=== PATIENT | female | born 1970 | race Caucasian/White ===

== ENCOUNTER → 2021-01-26 01:44 | Outpatient (CLI) | payer OTHER, SELFPAY ==
[2021-01-26 20:12] LABS: SARS-CoV-2 RNA PCR Negative
== END ==
PROVIDERS: PCP Physician Assistant; Visit Provider Surgery Plastic and Reconstructive Surgery
DX: Z01.812 Encounter for preprocedural laboratory examination (principal); Z20.822 Contact with and (suspected) exposure to COVID-19
CPT/HCPCS: C9803; U0003; U0005

== ENCOUNTER 2021-01-26 09:13 | Outpatient (CLI) | payer OTHER, SELFPAY ==
--- NOTE | 2021-01-26 09:00 | ECG_ITS ---
Measurements Intervals [place] Rate: 79 P: 57 MD: 130 QRS: 18 QRSD: 87 T: 21 QT: 342 QTc: 392 Interpretive Statements SINUS RHYTHM WITH SINUS ARRHYTHMIA BASELINE ARTIFACT- II, III, AVR, AVL, AVF NORMAL ECG Electronically Signed On 01-26-2021 9:47:47 CDT by Dereck Martin D.O.
[2021-01-26 09:42] LABS: Albumin Level 4.6 g/dL (3.5-5.1)
[2021-01-26 09:46] LABS: Anion Gap 9 mmol/L (8-16); Blood Urea Nitrogen 12 mg/dL (7-17); Calcium 8.8 mg/dL (8.4-10.2); Carbon Dioxide 29 mmol/L (22-30); Chloride 101 mmol/L (98-107); Estimated Glomerular Filt Rate > 60; Glucose 171 mg/dL (65-105); Potassium 3.5 mmol/L (3.4-5.0); Sodium 139 mmol/L (137-145)
[2021-01-26 09:52] LABS: Prealbumin 33.8 mg/dL (17.6-36.0)
[2021-01-26 10:12] LABS: Iron 27 ug/dL (37-170)
[2021-01-29 05:01] LABS: Vitamin B1 <6 nmol/L (8-30)
== END 2021-01-26 09:14 | disposition home or self-care (01) ==
LOC: ANHSURGERY 09:15
PROVIDERS: Anesthesiology; PCP Physician Assistant; Visit Provider Surgery Plastic and Reconstructive Surgery
DX: Z01.818 Encounter for other preprocedural examination (principal); I10 Essential (primary) hypertension; L57.4 Cutis laxa senilis
CPT/HCPCS: 36415; 80048; 82040; 83540; 84134; 84425; 93005

== ENCOUNTER 2021-01-29 02:29 | Day surgery (SDC) | payer OTHER, SELFPAY ==
[2021-01-20 09:20] VITALS: BMI 24.8
[2021-01-29] VITALS (22 sets, daily range): BP systolic 119–161; BP diastolic 78–105; PULSE 91–110; RESP 12–20; TEMP 36.7–37.2; O2SAT 94–100
[2021-01-29] MEDS: LACTATED RINGERS 1,000 ML 30 ML IV CONT ×2 (06:20→10:14)
[2021-01-29 06:30] LABS: Urine Cotinine NEGATIVE
--- NOTE | 2021-01-29 06:48 | WPDHPUPDATE1 ---
History and Physical Update Update Date/Time: 01/29/21 06:48 History and Physical has been reviewed, including an updated exam of the patient. There are NO changes in the patient's condition. Risks, benefits, and alternatives have been discussed and questions answered. Patient agrees to proceed with procedure.
--- NOTE | 2021-01-29 07:00 | PM.PROC ---
Procedure Note - Detailed Date of procedure: 01/29/21 Pre-op diagnosis: Skin Laxity Post-op diagnosis: same Procedure performed: Progressive tension abdominoplasty Description of procedure: She is here today for abdominoplasty. Previously and again today the risks, benefits, alternatives were discussed in extensive detail. I wanted her to be very realistic about the risks involved as well as expectations. We discussed aftercare and what to monitor for. I was very upfront about the risks of wound breakdown leading to loss of skin, open wounds, and need for additional procedures with permanent abdominal deformity. We discussed DVT/PE risks and management. Made sure answered all of her questions to her satisfaction today and consent was obtained. She was marked in the preoperative holding area with their verification. The patient was taken to the operating room placed supine on the operating table. Anesthesia was provided by anesthesiology. A simpson catheter was started. She was prepped and draped in a standard sterile fashion. A surgical time-out was taken. I placed the patient in a flexed position to verify the upper and lower markings would reach. I then placed her supine. A thorough abdominal examination was completed. Stab incisions were made and used tumescent solution. A 10 blade was used to make the upper incision. I continued dissection down to the level of fascia. Elevated just what was necessary for repair of the diastasis and discontinuous undermining otherwise. I then again flexed the bed to verify the upper skin flap would reach the lower markings without tension. Once verified I placed her supine once again and a 10 blade used to make the lower incision. I elevated up to level the umbilicus and left the umbilicus intact on a well-vascularized stalk. The intervening tissue was removed. A 2 mm blunt cannula and Exparel which was mixed 20 cc in 100 cc for a total volume of 120 cc I injected deep to the fascia bilaterally as well as along the incision lines. I plicated the diastasis recti using 0 PDO stratafix barbed suture. This was in 2 separate layers using 2 separate sutures as well. I repaired around the umbilicus leaving plenty of room for well-vascularized stalk of the umbilicus with 2-0 PDS. The patient was flexed and starting from superior to inferior began plication using 2-0 Vicryl to obliterate all space in a standard progressive tension fashion. At the umbilicus I marked out the location of the skin and inset this with 3-0 Monocryl and 4-0 nylon. I continued the remainder of the plication using 2-0 Vicryl until I reached my lower planned scar line. I trimmed any excess skin of the upper flap making sure this was a tension-free closure. I then approximated using a 3 point suture with 2-0 Vicryl followed by 3-0 stratafix ,running subcuticular 4-0 Monocryl, and tissue glue. Fluffs and an abdominal binder were placed. The patient was transferred to the bed in a flexed position. Awoken and taken to the PACU without difficulty. All instrument and sponge counts were correct at the end of the case. Anesthesia: GLMA Surgeon: Kev Glez MD Estimated blood loss (mL): 30 Drains: No Packing: No Pathology: none sent Complications: No immediate complications Condition: stable Disposition: PACU
--- NOTE | 2021-01-29 07:06 | WPDANESEPPF ---
Anes - Initial Pre Proc Eval Procedure: Operation Date: 01/29/21 07:30 Proposed Procedures p Abdominoplasty - Kev Glez MD Date/Time: 01/29/21 07:06 Surgeon: Kev Glez MD Pre Op Diagnosis: Skin Laxity Patient Data Age: 51 Gender: F Height: 5 ft 7 in Weight: 71.7 kg Last Vital Signs Temp 98.4 F 01/29/21 06:40 Pulse 93 01/29/21 06:40 Resp 18 01/29/21 06:40 BP 126/89 01/29/21 06:40 Pulse Ox 97 01/29/21 06:40 Allergies Allergy/AdvReac Type Severity Reaction Status Date / Time Penicillins Allergy Intermediate Hives Verified 01/29/21 07:00 Home Medications Medication Instructions Recorded Confirmed Type bupropion HCl 300 mg 24 hr tablet, 300 mg PO QAM 11/13/19 01/29/21 History extended release calcium carbonate 600 mg(1,500 1 tablet PO DAILY 11/13/19 01/29/21 History mg)-vitamin D3 800 unit chewable tablet hydrochlorothiazide 50 mg tablet 50 mg PO DAILY 11/13/19 01/29/21 History multivitamin 1 tablet PO DAILY 11/13/19 01/29/21 History omeprazole 40 mg capsule,delayed 40 mg PO DAILY 11/13/19 01/29/21 History release vitamin B complex 1 tablet PO DAILY 11/13/19 01/29/21 History estradiol 0.025 mg/24 hr 1 patch TRANSDERMAL 2XW 12/19/20 01/29/21 History semiweekly transdermal patch lisdexamfetamine 60 mg capsule 60 mg PO DAILY 12/19/20 01/29/21 History docusate sodium 100 mg capsule 100 mg PO DAILY #14 cap 01/07/21 01/29/21 Rx ondansetron HCl 4 mg tablet 4 mg PO Q8H #28 tablet 01/07/21 01/29/21 Rx carisoprodol 350 mg tablet 350 mg PO TID PRN #21 tablet 01/12/21 01/29/21 Rx oxycodone-acetaminophen 5 mg-325 1 tablet PO Q6H PRN #15 tablet 01/12/21 01/29/21 Rx mg tablet Laboratory Tests 01/29/21 06:14 Cotinine Negative Patient hx anesthesia problems: none Family hx anesthesia problems: none PMFSH Past Medical History Medical History ADHD Anemia Anxiety Depression Hypertension Psoriatic arthritis Vaginal delivery Surgical History Surgical History History of breast augmentation History of bunionectomy History of endometrial ablation History of gastric bypass S/P lumbar microdiscectomy Family History Family History Father Diabetes mellitus Family history of hypercholesterolemia Hypertension Mother Family history of hypercholesterolemia Family history of pancreatic disease Hypertension Social History Social History Smoking status: Never smoker Alcohol intake: current Substance use: never Substance use type: marijuana Living arrangements: with family Gender identity (if verbalized by the patient): Female Spiritual care concerns: No Anes - Eval Final PreProcedure Day of Procedure 01/29/21 07:06 Patient weight: overweight Heart: regular rate and rhythm Lungs: clear to auscultation Airway: Mallampati scale class II Neurological: alert and oriented Last oral intake: >/= 8 hours ASA classification: II Emergent: no Anesthetic plan: proceed Anesthesia type and monitoring: general ETT and standard monitoring Informed Consent: The patient's anesthetic plan and its attendant risks and benefits were discussed with the patient/family/POA. Questions were solicited and answers provided to the satisfaction of the patient/family/POA.
[2021-01-29] MEDS: CLINDAMYCIN 900 MG/D5W 50 ML 900 MG/50 ML PIGGYBACK 50 MG IVPB (07:28)
[2021-01-29] MEDS: fentaNYL CITRATE INJ (*CRX) 100 MCG/2 ML VIAL 25 MCG IV PUSH ×4 (10:33→11:02)
--- NOTE | 2021-01-29 10:50 | SUR.PHASEI ---
1050- Call to Dr. Jain patient's BP elevated 153/105 with HR in the 90's. Patient does have history of hypertension and sleeping comfortably in stretcher at this time with minimal pain. Per Dr. Jain no intervention needed at this time. Continue to monitor patient's BP and pain level. He will see patient in PACU to assess her status.
[2021-01-29] MEDS: HYDROmorphone HCL INJ (*CRX) 1 MG/ML SYR 0.5 MG IV PUSH ×6 (11:16→12:22)
--- NOTE | 2021-01-29 11:16 | SUR.PHASEI ---
1116- Dr. Jain rounding on patient at this time. No additional orders. BP 149/105 with HR in 90's. Will continue to monitor.
--- NOTE | 2021-01-29 11:45 | SUR.PHASEI ---
1145- Call to OB Second unit to give nurse report. Floor RN unavailable at this time. Awaiting call back from floor RN.
--- NOTE | 2021-01-29 11:58 | SUR.PHASEI ---
1158- Call to Dr. Jain patient's BP remains elevated 158/102 with HR in 90's to low 100's after giving 100MCG fentanyl IVP and 2.5MG dilaudid IVP. Orders obtained to give 5MG hydralazine IVP and repeat 5MG hydralazine IVP for a total of 10MG hydralazine IVP. Will continue to monitor.
[2021-01-29] MEDS: hydrALAZINE HCL 20 MG/ML VIAL 5 MG IV PUSH ×2 (12:05→12:15)
--- NOTE | 2021-01-29 12:12 | SUR.PHASEI ---
1200- Report given to OB Second RN at this time. Updated her patient will be receiving 5MG hydralazine IVP and repeat 5MG IVP hydralazine to improve BP.
[2021-01-29] MEDS: carisoprodoL (*CRX) 350 MG TABLET PO ×2 (13:23→19:31)
[2021-01-29] MEDS: LACTATED RINGERS 1,000 ML 125 ML IV CONT ×2 (13:23→19:36)
[2021-01-29] MEDS: MORPHINE SULFATE (*CRX) 2 MG/ML INJ IV PUSH ×2 (13:27→19:43)
[2021-01-29] MEDS: oxyCODONE/ACETAMINOPHEN (*CRX) 5-325 MG TABLET PO ×2 (14:59→20:32)
[2021-01-29] MEDS: ENOXAPARIN 40 MG/0.4 ML SYRINGE SUB-Q (16:40)
[2021-01-29] MEDS: PANTOPRAZOLE 40 MG TABLET PO (16:40)
[2021-01-29] MEDS: DOCUSATE SODIUM 100 MG CAPSULE PO (19:31)
[2021-01-30] MEDS: carisoprodoL (*CRX) 350 MG TABLET PO ×2 (01:00→06:10)
[2021-01-30] MEDS: oxyCODONE/ACETAMINOPHEN (*CRX) 5-325 MG TABLET PO ×2 (02:43→07:57)
[2021-01-30 04:00] VITALS: BP 142/88; PULSE 96; RESP 18; TEMP 36.9; O2SAT 98
--- NOTE | 2021-01-30 06:39 | WPDPN ---
Progress Note: A&P Assessment and Plan (1) Skin laxity: Code(s): L57.4 - Cutis laxa senilis Status: Acute Assessment and Plan: She is doing well after progressive tension abdominoplasty. Will discharge home a once she voids. Today we had a lengthy discussion about her care. What monitor for. We outlined what to do in the event of an emergency including down 911/proceed to the emergency room. I explained for all other questions we are available at any time with any questions or concerns. This was a lengthy open-ended conversation making sure she was well informed of the care. We will monitor this morning and make sure she voids prior to discharge. Will check bladder scan if she does not avoid after breakfast which she has ordering now. (2) History of breast augmentation: Code(s): Z98.82 - Breast implant status Status: Acute Review of Systems Review of Systems: All systems reviewed & are unremarkable except as noted in HPI and below Exam Narrative: Exam Narrative: Abdomen is healing well. There is no signs of infection. No hematoma. No seroma. Good color and capillary refill. No calf tenderness. Negative Homans. Const: General: comfortable, no acute distress, alert and awake; No acute distress Orientation/consciousness: oriented to person HENMT: Head: normal to inspection Ears: external ears normal General nose exam: Normal external nose present Face and sinus: normal facial exam Eyes: General: appearance normal, both eyes and all related structures Periorbital: periorbital findings normal Eyelids: eyelids normal Conjunctivae: conjunctivae normal Neck: Neck: normal visual inspection Chest: Chest palpation & inspection: normal inspection of the chest Resp: Effort & Inspection: normal respiratory effort and able to speak in complete sentences GI: Inspection: normal to inspection Neuro: General: oriented to person Psych: Appearance: grossly normal Mental Status: mental status grossly normal Objective Data Vital Signs Vital Signs: Vital Signs - 24 hr 01/29/21 06:40 01/29/21 10:14 01/29/21 10:25 Temperature 36.9 C 37.1 C Pulse Rate 93 92 91 Respiratory Rate 18 12 12 Blood Pressure 126/89 119/87 137/90 Pulse Oximetry 97 98 99 01/29/21 10:35 01/29/21 10:50 01/29/21 10:55 Temperature Pulse Rate 92 93 95 Respiratory Rate 12 12 12 Blood Pressure 141/93 H 153/105 H 155/104 H Pulse Oximetry 98 94 94 01/29/21 11:05 01/29/21 11:20 01/29/21 11:35 Temperature Pulse Rate 95 97 95 Respiratory Rate 12 16 16 Blood Pressure 158/101 H 149/105 H 148/99 H Pulse Oximetry 94 96 96 01/29/21 11:45 01/29/21 11:55 01/29/21 12:10 Temperature Pulse Rate 96 98 104 H Respiratory Rate 16 16 18 Blood Pressure 161/98 H 158/102 H 150/98 H Pulse Oximetry 96 96 97 01/29/21 12:20 01/29/21 12:25 01/29/21 12:45 Temperature Pulse Rate 104 H 104 H Respiratory Rate 16 18 Blood Pressure 152/90 H 150/89 H Pulse Oximetry 97 96 97 01/29/21 12:50 01/29/21 14:45 01/29/21 15:00 Temperature 37.2 C 36.8 C Pulse Rate 110 H 105 H 105 H Respiratory Rate 18 18 18 Blood Pressure 146/81 H 148/82 H Pulse Oximetry 97 97 97 01/29/21 18:20 01/29/21 19:00 01/29/21 20:25 Temperature 36.7 C Pulse Rate 104 H Respiratory Rate 18 20 Blood Pressure 140/78 Pulse Oximetry 100 98 98 01/29/21 23:30 01/30/21 04:00 Temperature 37.0 C 36.9 C Pulse Rate 94 96 Respiratory Rate 18 18 Blood Pressure 156/98 H 142/88 H Pulse Oximetry 98 98 Intake/Output Intake/Output: Intake & Output 01/27/21 01/28/21 01/29/21 01/30/21 23:59 23:59 23:59 23:59 Intake Total 2830 1200 Output Total 650 500 Balance 2180 700 Meds/Results Medications: Active Medications Generic Name Dose Route Start Last Admin Trade Name Dianne PRN Reason Stop Dose Admin Bupropion HCl 300 mg 01/30/21 09:00 Bupropion Hcl Xl (24 Hr) 150 Mg Tabcr PO QAM ROMELIA Carisoprodol
--- NOTE | 2021-01-30 06:42 | PM.DS ---
DS: Admitting Diagnosis Admitting Diagnosis Admitting Diagnosis: Skin laxity History breast augmentation DS: Discharge Diagnosis Discharge Diagnosis (1) Skin laxity: Code(s): L57.4 - Cutis laxa senilis Status: Acute Assessment and Plan: Doing well after progressive tension abdominoplasty. She did have some trouble voiding this morning. We will make sure she voids prior to discharge. She did receive blood thinner and ambulation while in the facility. After hearing all her options she is going to ambulate at home for DVT prophylaxis. This was outlined in great detail both what to do as well as her options for DVT prophylaxis and signs and symptoms of blood clots. She understands with any signs and symptoms of blood clot proceed to the emergency room/dial 911 immediately. (2) History of breast augmentation: Code(s): Z98.82 - Breast implant status Status: Acute DS: Summary Hospital Course Hospital Course: Patient underwent progressive tension abdominoplasty uneventfully. Postoperatively she has done very well. She did have a little difficulty voiding early and prior to discharge we will make sure she has voided. Follow-up in 1 week. She has elected to use early ambulation for DVT prophylaxis after discharge. Time Spent with Patient Time attestation: Total time spent providing and/or coordinating discharge services: Discharge Plan Discharge Patient Disposition: Home, Self-Care Discharge Instructions: POST OPERATIVE DISCHARGE INSTRUCTIONS FOR KEV GLEZ M.D. [facility] [place] [address] [address] for 24 hours after anesthesia and while you are taking pain medication. Take all prescribed medication as directed Diet as tolerated. No lifting or activity that raises blood pressure for 48 hours. Regular walking / ambulation. No showering until directed to. Once you shower do not take pain medication before showering as the combination of medication and heat may cause you to feel dizzy or pass out. No pools or tubs for 2 weeks. Call with any questions or concerns. Slowly stand up straight over the week. No straining or lifting more than 20 pounds for 6 weeks. Dressing Care: Binder 23 hours per day. If you have any questions or concerns, please call the office . If it is after hours you will be directed to the extension professor exchange. Shortness of breath, chest pain, or other medical emergency dial 911 / proceed to the Emergency Room. Stand Alone Forms: General Discharge Instructions Follow-up/Referrals: Kev Glez MD [Physician] - 1 Week Discharge Medications: Continued Vyvanse 60 mg capsule 60 mg PO DAILY RF: 0 estradiol 0.025 mg/24 hr patch semiweekly 1 patch transdermal 2XW RF: 0 vitamin B complex [B Complex-Vitamin B12] Tablet 1 tablet PO DAILY RF: 0 bupropion HCl [Wellbutrin XL] 300 mg tablet extended release 24 hr 300 mg PO QAM RF: 0 Caltrate 600 plus D 600 mg (1,500 mg)-800 unit tablet,chewable 1 tablet PO DAILY RF: 0 hydrochlorothiazide 50 mg tablet 50 mg PO DAILY RF: 0 omeprazole 40 mg capsule,delayed release(DR/EC) 40 mg PO DAILY RF: 0 multivitamin [Daily Multi-Vitamin] Tablet 1 tablet PO DAILY RF: 0 ondansetron HCl [Zofran] 4 mg tablet 4 mg PO Q8H Qty: 28 RF: 0 docusate sodium [Colace] 100 mg capsule 100 mg PO DAILY Qty: 14 RF: 0 carisoprodol [Soma] 350 mg tablet 350 mg PO TID PRN (Reason: muscle pain) Qty: 21 RF: 0 oxycodone-acetaminophen [Percocet] 5-325 mg tablet 1 tablet PO Q6H PRN (Reason: pain) Qty: 15 RF: 0
[2021-01-30 07:35] VITALS: BP 138/88; PULSE 96; RESP 18; TEMP 36.6; O2SAT 96
--- NOTE | 2021-01-30 07:55 | WPDANESPN ---
Anes - Prog Note Post-Op Date/Time: 01/30/21 07:55 Cardiovascular status: normal Respiratory status: normal Airway patency: baseline Mental status: baseline Post-Op hydration status: normal Vital Signs: Last Vital Signs Temp 36.9 C 01/30/21 04:00 Pulse 96 01/30/21 04:00 Resp 18 01/30/21 04:00 BP 142/88 H 01/30/21 04:00 Pulse Ox 98 01/30/21 04:00 Pain Score (VAS): 0 I/O: Intake & Output 01/29/21 01/29/21 01/30/21 15:59 23:59 07:59 Intake Total 500 2330 1200 Output Total 450 200 500 Balance 50 2130 700 Post-procedural complaints: none Patient Feedback: Patient satisfied with anesthetic care.
[2021-01-30 09:45] VITALS: PULSE 96; RESP 18; O2SAT 96
== END 2021-01-30 11:15 | disposition home or self-care (01) ==
LOC: ANHSURGERY 07:09 → ANHOB2 12:36
PROVIDERS: PCP Physician Assistant; Visit Provider Surgery Plastic and Reconstructive Surgery
PROC: (CPT 15830; principal; 2021-01-29 07:30)
DX: Z41.1 Encounter for cosmetic surgery (principal); L57.4 Cutis laxa senilis; F90.9 Attention-deficit hyperactivity disorder, unspecified type; D64.9 Anemia, unspecified; F33.0 Major depressive disorder, recurrent, mild; I10 Essential (primary) hypertension; L40.50 Arthropathic psoriasis, unspecified; F12.90 Cannabis use, unspecified, uncomplicated; Z79.890 Hormone replacement therapy
CPT/HCPCS: 15830; 15847; 80307; 99199; A9270; C9290; J0171; J0360; J1100; J1170; J1650; J2250; J2270; J2405; J2704; J3010; J7120

== ENCOUNTER 2022-07-29 16:08 | Outpatient (CLI) | payer OTHER, SELFPAY ==
--- NOTE | ~2022-07-29 | MM_ITS ---
EXAMINATION: MM scrn rosy implant BI w hema HISTORY: Screening mammogram TECHNIQUE: Craniocaudal and mediolateral oblique 3-D tomosynthesis images with implant displacement a nd synthetic 2-D images were generated. Craniocaudal and mediolateral oblique views of the breasts wi thout implant displacement were obtained using full field digital mammography. CAD analysis was submi tted and interpreted. COMPARISON: 12/22/2020 bilateral implant screening mammogram 01/21/2021 diagnostic right mammogram BREAST PARENCHYMAL COMPOSITION: There are scattered areas of fibroglandular density. FINDINGS: There is no evidence of suspicious mass, calcification, or architectural distortion to sugg est malignancy in either breast. There has been no suspicious interval change. IMPRESSION: 1. No mammographic evidence of malignancy. 2. Recommend routine screening mammography in one year. BI-RADS Category 1: Negative Reviewed, dictated and finalized at location A.
== END 2022-07-29 16:09 | disposition home or self-care (01) ==
PROVIDERS: PCP Physician Assistant; Visit Provider Student in an Organized Health Care Education/Training Program
DX: Z12.31 Encounter for screening mammogram for malignant neoplasm of breast (principal)
CPT/HCPCS: 77063; 77067

== ENCOUNTER 2022-09-17 00:59 | Day surgery (SDC) | payer OTHER, SELFPAY ==
[2022-09-14 09:55] VITALS: BMI 24.7
--- NOTE | 2022-09-14 09:56 | SUR.PREOP ---
Report to the Outpatient Waiting Room, entrance under the green pavilion located off [facility], at time _0600_ on date __09/17/22 . Planned Procedure Time: _07__. Time changes happen often and if your time is changed the preop area will call you the afternoon before. - You and your visitor will be asked to self-screen and do not enter if you have any COVID symptoms. - We encourage only one visitor and NO visitors under age 16 are allowed at this time. Your visitor will receive communication by the phone number that is given day of service. - The patient visitor is requested to social distance or may leave the building when not with patient due to restrictions. - A mask is required within the hospital. Patients may have clear liquids (water, carbonated beverages, clear teas, apple juice) until 3 hours prior to surgery with a maximum of 20 ounces. - No food from midnight until time of surgery before 0430 am - Infants may have breast milk until 4 hours before surgery, infant formula 6 hours prior to surgery. - Children will be allowed to drink immediately following surgery. If applicable, please bring a bottle or sippy cup to assist with drinking. Juice, water, soda, and popsicles are readily available. For infants on formula, please bring formula the day of surgery. Pacifiers are allowed. Take the following medications with a SIP of water the morning of surgery: ___bupropion, buspirone, sulfasalazine Medications to discontinue per physician _all vitamins and supplements 3 days prior to surgery. hold HCTZ day of surgery Date to take last dose Please no make-up, nail greek, hairspray, perfume, deodorant, or body powder the day of surgery. No jewelry (including any body piercings) or valuables the day of surgery, leave them at home. Please take a shower or bath the night before, or the morning of, surgery with an antibacterial soap. Wear comfortable, loose fitting clothing. Children are encouraged to wear pajamas. - Jewelry must be removed prior to entering the operating room. Rings and piercings that are not removed may be cut off. - The hospital will not accept responsibility for valuables. - Please leave all valuables, including medications, at home the day of surgery. If you are going home after surgery, a licensed star route mail driver must drive you home. - NO public transportation without another adult. - We recommend that an adult stay with you for 24 hours following discharge. - We also recommend that you do not drive, make important decision, drink alcoholic beverages, or take any drugs that were not prescribed by your health care provider for at least 24 hours after your discharge time. For Pediatric surgeries, we recommend two adults accompany the child home. Follow any additional instructions given to you from your surgeon. If you or anyone in your household have experienced Covid symptoms in the past week, please notify your surgeon or the nurse liaison at the phone number below for possible testing. Telephone instructions given to ___patient and asked if any additional questions and then verbalized understanding. Patient advised to call surgeon office or pre surgery nurse liaison [phone] if any additional questions.
--- NOTE | 2022-09-16 13:44 | WPDANESEPPF ---
Anes - Initial Pre Proc Eval Procedure: Operation Date: 09/17/22 07:30 Proposed Procedures p Bilateral Breast Implant Exchange with Capsulectomy - Kev Glez MD s Cervical Polypectomy - Letty Warren MD Date/Time: 09/16/22 13:44 Surgeon: Kev Glez MD Pre Op Diagnosis: rt breast implant rupture & cerv polyps Patient Data Age: 52 Gender: F Height: 1.7 m Weight: 71.67 kg Allergies Allergy/AdvReac Type Severity Reaction Status Date / Time Penicillins Allergy Intermediate Hives Verified 09/08/22 15:33 Home Medications Medication Instructions Recorded Confirmed Type bupropion HCl 300 mg 24 hr tablet, 300 mg PO QAM 11/13/19 09/14/22 History extended release (Wellbutrin XL) calcium carbonate 600 mg-vitamin 1 tablet PO DAILY 11/13/19 09/14/22 History D3 20 mcg (800 unit) chewable tablet (Caltrate 600 plus D) hydrochlorothiazide 50 mg tablet 50 mg PO DAILY 11/13/19 09/14/22 History multivitamin (Daily Multi-Vitamin 1 tablet PO DAILY 11/13/19 09/14/22 History tablet) omeprazole 40 mg capsule,delayed 40 mg PO DAILY 11/13/19 09/14/22 History release vitamin B complex (B 1 tablet PO DAILY 11/13/19 09/14/22 History Complex-Vitamin B12 tablet) estradiol 0.025 mg/24 hr 1 patch transdermal 2XW 12/19/20 09/14/22 History semiweekly transdermal patch lisdexamfetamine 60 mg capsule 60 mg PO DAILY 12/19/20 09/14/22 History (Vyvanse) docusate sodium 100 mg capsule 100 mg PO BID #14 caps 11/04/21 09/14/22 Rx (Colace) adalimumab 40 mg/0.8 mL 40 mg subcut WEEKLY 03/23/22 09/14/22 History subcutaneous syringe kit (Humira) sulfasalazine 500 mg tablet 1.5 g PO BID 03/23/22 09/14/22 History buspirone 5 mg tablet 5 mg PO BID 09/08/22 09/14/22 History magnesium oxide,aspartate,citr 400 mg PO DAILY 09/08/22 09/14/22 History nitrofurantoin 100 mg PO ONCE 09/08/22 09/14/22 History monohydrate/macrocrystals 100 mg capsule (Macrobid) Results Review: All pre-operative results and documents have been reviewed as part of the pre-operative evaluation. [facility] Past Medical History Medical History ADHD Anemia Anxiety Depression Hypertension Psoriatic arthritis Vaginal delivery Surgical History Surgical History History of breast augmentation History of bunionectomy History of endometrial ablation History of gastric bypass S/P lumbar microdiscectomy Family History Family History Father Diabetes mellitus Family history of hypercholesterolemia Hypertension Mother Family history of hypercholesterolemia Family history of pancreatic disease Hypertension Social History Social History Smoking status: Never smoker Alcohol intake: current Drinks per week: 7 Substance use: current Substance use type: marijuana Gender identity (if verbalized by the patient): Female Sexual Orientation (if Verbalized by the Patient): Straight or Heterosexual Spiritual care concerns: No Anes - Eval Final PreProcedure Day of Procedure 09/16/22 13:44 Patient weight: overweight Heart: regular rate and rhythm Lungs: clear to auscultation Airway: Mallampati scale class II Neurological: alert and oriented Last oral intake: >/= 8 hours ASA classification: II Emergent: no Anesthetic plan: proceed Anesthesia type and monitoring: general LMA and standard monitoring Results Review: All pre-operative results and documents have been reviewed as part of the pre-operative evaluation. Informed Consent: The patient's anesthetic plan and its attendant risks and benefits were discussed with the patient/family/POA. Questions were solicited and answers provided to the satisfaction of the patient/family/POA.
--- NOTE | 2022-09-16 17:28 | PM.IMHP ---
H&P: HPI History of Present Illness Date/Time: 09/16/22 17:28 Chief Complaint: Cervical polyp Narrative: Patient has a history of a known cervical polyp. Cervical polyp has been present for several years. Recently, patient reports spotting and bleeding following intercourse, which she did not experience previously. Discussion had with patient regarding removal of polyp and decision made to proceed with polypectomy during same time as patient undergoing surgery for another indication. In general, patient doing well today without complaints. Review of Systems Review of Systems: All systems reviewed & are unremarkable except as noted in HPI and below Constitutional: Constitutional: Reports as per HPI and Reports no additional constitutional complaints Eyes: Eyes: Reports as per HPI and Reports no additional eye complaints ENT: Reports system reviewed and no additional complaints, except as documented and Reports as per HPI Cardiovascular: Cardiovascular: Reports as per HPI and Reports no additional cardiovascular complaints Respiratory: Respiratory: Reports as per HPI and Reports no additional respiratory complaints Gastrointestinal: Gastrointestinal: Reports as per HPI and Reports no additional gastrointestinal complaints Genitourinary: Genitourinary: Reports no additional female genitourinary complaints and Reports as per HPI Musculoskeletal: Musculoskeletal: Reports no additional musculoskeletal complaints and Reports as per HPI Integumentary/Breasts: Skin/Breast: Reports system reviewed and no additional complaints, except as docu and Reports as per HPI Neurologic: Reports system reviewed and no additional complaints, except as documented and Reports as per HPI Psychiatric: Psychiatric: Reports no additional psychiatric complaints and Reports as per HPI Endocrine: Endocrine: Reports no additional endocrine complaints and Reports as per HPI Hematologic/Lymphatic: Hematologic/Lymphatic: Reports no additional hematologic/lymphatic complaints and Reports as per HPI Allergic/Immunologic: Allergic/Immunologic: Reports no additional allergic/immunologic complaints and Reports as per HPI PMFSH Past Medical History Medical History ADHD Anemia Anxiety Depression Hypertension Psoriatic arthritis Vaginal delivery Surgical History Surgical History History of breast augmentation History of bunionectomy History of endometrial ablation History of gastric bypass S/P lumbar microdiscectomy Family History Family History Father Diabetes mellitus Family history of hypercholesterolemia Hypertension Mother Family history of hypercholesterolemia Family history of pancreatic disease Hypertension Social History Social History Smoking status: Never smoker Alcohol intake: current Drinks per week: 7 Substance use: current Substance use type: marijuana Gender identity (if verbalized by the patient): Female Sexual Orientation (if Verbalized by the Patient): Straight or Heterosexual Spiritual care concerns: No Meds Home Medications and Allergies Home Medications Medication Instructions Recorded Confirmed Type bupropion HCl 300 mg 24 hr tablet, 300 mg PO QAM 11/13/19 09/14/22 History extended release (Wellbutrin XL) calcium carbonate 600 mg-vitamin 1 tablet PO DAILY 11/13/19 09/14/22 History D3 20 mcg (800 unit) chewable tablet (Caltrate 600 plus D) hydrochlorothiazide 50 mg tablet 50 mg PO DAILY 11/13/19 09/14/22 History multivitamin (Daily Multi-Vitamin 1 tablet PO DAILY 11/13/19 09/14/22 History tablet) omeprazole 40 mg capsule,delayed 40 mg PO DAILY 11/13/19 09/14/22 History release vitamin B complex (B 1 tablet PO DAILY 11/13/19 09/14/22 History Complex-Vitamin B12 tabl
[2022-09-17] VITALS (8 sets, daily range): BP systolic 122–156; BP diastolic 79–103; PULSE 86–98; RESP 10–16; TEMP 36.4; O2SAT 96–100; BMI 23.9
--- NOTE | 2022-09-17 06:15 | ECG_ITS ---
Measurements Intervals [place] Rate: 79 P: 55 TN: 143 QRS: 15 QRSD: 86 T: 24 QT: 373 QTc: 429 Interpretive Statements SINUS RHYTHM WITH SINUS ARRHYTHMIA POSSIBLE LEFT ATRIAL ENLARGEMENT BASELINE ARTIFACT- I, II, AVR, AVL, AVF, V1-V3 BORDERLINE ECG COMPARED TO ECG 01/26/2021 09:53:19 NO SIGNIFICANT CHANGES Electronically Signed On 09-17-2022 7:49:51 CONSULTING DATABASE ADMINISTRATOR by Dereck Martin D.O.
[2022-09-17] MEDS: LACTATED RINGERS 1,000 ML 30 ML IV CONT ×2 (06:50→06:55)
[2022-09-17] MEDS: ACETAMINOPHEN 500 MG TABLET 1000 MG PO (07:03)
--- NOTE | 2022-09-17 07:07 | WPDANESEPPF ---
Anes - Initial Pre Proc Eval Procedure: Operation Date: 09/17/22 07:30 Proposed Procedures p Bilateral Breast Implant Exchange with Capsulectomy - Kev Glez MD s Cervical Polypectomy - Letty Warren MD Date/Time: 09/17/22 07:07 Surgeon: Kev Glez MD Pre Op Diagnosis: rt breast implant rupture & cerv polyps Patient Data Age: 52 Gender: F Height: 1.7 m Weight: 71.67 kg Allergies Allergy/AdvReac Type Severity Reaction Status Date / Time Penicillins Allergy Intermediate Hives Verified 09/17/22 06:43 Home Medications Medication Instructions Recorded Confirmed Type bupropion HCl 300 mg 24 hr tablet, 300 mg PO QAM 11/13/19 09/14/22 History extended release (Wellbutrin XL) calcium carbonate 600 mg-vitamin 1 tablet PO DAILY 11/13/19 09/14/22 History D3 20 mcg (800 unit) chewable tablet (Caltrate 600 plus D) hydrochlorothiazide 50 mg tablet 50 mg PO DAILY 11/13/19 09/14/22 History multivitamin (Daily Multi-Vitamin 1 tablet PO DAILY 11/13/19 09/14/22 History tablet) omeprazole 40 mg capsule,delayed 40 mg PO DAILY 11/13/19 09/14/22 History release vitamin B complex (B 1 tablet PO DAILY 11/13/19 09/14/22 History Complex-Vitamin B12 tablet) estradiol 0.025 mg/24 hr 1 patch transdermal 2XW 12/19/20 09/14/22 History semiweekly transdermal patch lisdexamfetamine 60 mg capsule 60 mg PO DAILY 12/19/20 09/14/22 History (Vyvanse) docusate sodium 100 mg capsule 100 mg PO BID #14 caps 11/04/21 09/14/22 Rx (Colace) adalimumab 40 mg/0.8 mL 40 mg subcut WEEKLY 03/23/22 09/14/22 History subcutaneous syringe kit (Humira) sulfasalazine 500 mg tablet 1.5 g PO BID 03/23/22 09/14/22 History buspirone 5 mg tablet 5 mg PO BID 09/08/22 09/14/22 History magnesium oxide,aspartate,citr 400 mg PO DAILY 09/08/22 09/14/22 History nitrofurantoin 100 mg PO ONCE 09/08/22 09/14/22 History monohydrate/macrocrystals 100 mg capsule (Macrobid) Patient hx anesthesia problems: post op nausea/vomiting Family hx anesthesia problems: none Results Review: All pre-operative results and documents have been reviewed as part of the pre-operative evaluation. [facility] Past Medical History Medical History ADHD Anemia Anxiety Depression Hypertension Psoriatic arthritis Vaginal delivery Surgical History Surgical History History of breast augmentation History of bunionectomy History of endometrial ablation History of gastric bypass S/P lumbar microdiscectomy Family History Family History Father Diabetes mellitus Family history of hypercholesterolemia Hypertension Mother Family history of hypercholesterolemia Family history of pancreatic disease Hypertension Social History Social History Smoking status: Never smoker Alcohol intake: current Drinks per week: 7 Substance use: current Substance use type: marijuana Living arrangements: with family Gender identity (if verbalized by the patient): Female Sexual Orientation (if Verbalized by the Patient): Straight or Heterosexual Spiritual care concerns: No Anes - Eval Final PreProcedure Day of Procedure 09/17/22 07:07 Patient weight: normal Heart: regular rate and rhythm Lungs: clear to auscultation Airway: Mallampati scale class II Neurological: alert and oriented Last oral intake: >/= 8 hours ASA classification: III Emergent: no Anesthetic plan: proceed Anesthesia type and monitoring: general LMA and standard monitoring Results Review: All pre-operative results and documents have been reviewed as part of the pre-operative evaluation. Informed Consent: The patient's anesthetic plan and its attendant risks and benefits were discussed with the patient/family/POA. Questions were s
--- NOTE | 2022-09-17 07:16 | WPDHPUPDATE1 ---
History and Physical Update Update Date/Time: 09/17/22 07:16 History and Physical has been reviewed, including an updated exam of the patient. There are NO changes in the patient's condition. Risks, benefits, and alternatives have been discussed and questions answered. Patient agrees to proceed with procedure.
[2022-09-17] MEDS: SCOPOLAMINE 1.5 MG PATCH TRANSDERM (07:29)
--- NOTE | 2022-09-17 07:30 | SUR.PREOP ---
0730- NOTIFIED DR. MARTINEZ PATIENT'S BMP WAS NOT RECEIVED BY LABORATORY STAFF UNTIL CALL FROM TRACY CAMARGO RN AT 0725. TUBE SYSTEM SHOWS SPECIMEN SENT AT 0658. PER DR. MARTINEZ OK TO PROCEED WITH PROCEDURE WITHOUT RESULTED BMP.
[2022-09-17] MEDS: ceFAZolin 2 GM/D5W 50 ML 2 GM/50 ML BAG IVPB (07:33)
--- NOTE | 2022-09-17 07:33 | WPDHPUPDATE1 ---
History and Physical Update Update Date/Time: 09/17/22 07:33 History and Physical has been reviewed, including an updated exam of the patient. There are NO changes in the patient's condition. Risks, benefits, and alternatives have been discussed and questions answered. Patient agrees to proceed with procedure.
[2022-09-17 07:38] LABS: Anion Gap 17 mmol/L (8-16); Blood Urea Nitrogen 9 mg/dL (7-17); Calcium 8.9 mg/dL (8.4-10.2); Carbon Dioxide 24 mmol/L (22-30); Chloride 99 mmol/L (98-107); Estimated CRCL calculation 69 ml/min; Estimated Glomerular Filt Rate > 60; Glucose 74 mg/dL (65-110); Potassium 3.3 mmol/L (3.4-5.0); Sodium 140 mmol/L (137-145)
[2022-09-17] MEDS: LIDOCAINE HCL 1% PF 30 ML VIAL INFILTRATE (07:44)
[2022-09-17] MEDS: BUPIVACAINE/EPINEPHRINE 0.25% 10 ML VIAL 30 ML INFILTRATE (07:44)
--- NOTE | 2022-09-17 07:58 | W.PM.PROC2 ---
Procedure Note - Detailed Date of Procedure 09/17/22 Pre-op Diagnosis rt breast implant rupture & cervical polyp Post-op Diagnosis Same Procedure Performed Cervical polypectomy Surgeon Letty Warren MD Anesthesia General Findings Approx. 1-1.5cm cervical polyp noted extending from right side of ectocervix Description of Procedure Patient was taken to operating room where she self transferred to operating room table. She was positioned in dorsal supine position. General anesthesia was administered and found be adequate. Patient was repositioned in dorsal lithotomy position with use of Piyush stirrups. She was prepped and draped in usual sterile fashion. A red rubber catheter was used to drain the bladder of approx. 40 cc of concentrated urine into a sterile container. Urine to be sent for urine culture as just prior to procedure, patient reported symptoms of a UTI. A bivalve speculum was inserted into the vagina. The cervix was well visualized. An approximate 1-1.5 cm cervical polyp was visualized with a wide base extending from right side of ectocervix. With the use of a Bovie, polyp was completely excised at the base and handed off the field to be sent to pathology for analysis. Excision site was inspected. No bleeding was noted. Procedure deemed complete. Speculum was removed from vagina. Patient remained under anesthesia for Dr. Glez's portion of case. Please refer to his dictation note for rest of procedure. Estimated Blood Loss 0 Drains No Packing No Pathology Yes (cervical polyp) Complications No immediate complications Condition Stable Disposition Other (pending) [facility] Billing Surgery - Charge Forward: Surgery Billing
[2022-09-17] MEDS: NACL 0.9% IRRIG POUR BOTTLE 900 ML, GENTAMICIN SULFATE INJ 160 MG, CLINDAMYCIN PHOS INJ... IRRIGATION (08:55)
--- NOTE | 2022-09-17 09:02 | W.PM.PROC2 ---
Procedure Note - Detailed Date of Procedure 09/17/22 Pre-op Diagnosis rt breast implant rupture & cerv polyps Post-op Diagnosis Same Procedure Performed Bilateral breast implant removal with bilateral capsulectomy Surgeon Kev Glez MD Anesthesia General Findings Right breast implant ruptured. Left Intact. Bilateral Jose Mak SoftTouch 540cc Right REF# [id number] Left REF# [id number] SN [id number] Description of Procedure She is here today for the procedures as above. Previously and again today the risks, benefits, alternatives were discussed in extensive detail. She understands we will not remove the entire capsule. She understands we will send this to pathology this is additional expense to her. All questions were answered. Consent obtained. She was taken to the operating room placed supine on the operating room table. Anesthesia provided by anesthesiology. Dr. Warren completed her portion of the procedure first. See her notes for details. She was prepped and draped in a standard sterile fashion. 1% lidocaine and 0.25% Marcaine with epinephrine was used provide a field block. A 15 blade used to previous scar. Dissection was continued down to the capsules identified elevated just above the capsule removing the majority of bilateral capsules. Bilateral implants removed. The right was ruptured the left intact. I then copiously irrigated with saline solution in 2 separate rounds using TUR tubing and saline. This was 6 L total volume. I verified strict hemostasis. I verified all silicone was removed. I then irrigated with Betadine solution. Tegaderm nipple Nation were in place throughout the procedure. Using a Ge funnel in a no-touch technique the implant was introduced into the pocket. This was closed using 2-0 Vicryl followed by 3-0 Monocryl in a running subcuticular 4-0 Monocryl. Glue for final closure. Dressings and surgical bra placed. She tolerated the procedure well. Estimated Blood Loss 20 Drains No Packing No Pathology Yes (Bilateral breast capsules.) Complications No immediate complications Condition Stable Disposition PACU
[2022-09-17] MEDS: HYDROmorphone HCL INJ (*CRX) 1 MG/ML SYR 0.5 MG IV PUSH ×2 (09:27→09:50)
--- NOTE | 2022-09-17 09:35 | SUR.PHASEI ---
0935: Simple mask removed.
[2022-09-17] MEDS: oxyCODONE HCL (*CRX) 5 MG TAB IR PO (10:33)
== END 2022-09-17 11:26 | disposition home or self-care (01) ==
PROVIDERS: Anesthesiology; Student in an Organized Health Care Education/Training Program; PCP Physician Assistant; Visit Provider Surgery Plastic and Reconstructive Surgery
PROC: (CPT 19342; principal; 2022-09-17 07:30)
PROC: 0U5B8ZZ Destruction of Endometrium, Via Natural or Artificial Opening Endoscopic (ICD-10-PCS; CPT 58563; 2022-09-17 07:30)
DX: T85.41XA Breakdown (mechanical) of breast prosthesis and implant, initial encounter (principal); Y83.8 Other surgical procedures as the cause of abnormal reaction of the patient, or of later complication, without mention of misadventure at the time of the procedure; N84.1 Polyp of cervix uteri; I10 Essential (primary) hypertension; L40.50 Arthropathic psoriasis, unspecified; F90.9 Attention-deficit hyperactivity disorder, unspecified type; F41.9 Anxiety disorder, unspecified; F32.A Depression, unspecified; Z98.84 Bariatric surgery status; F12.90 Cannabis use, unspecified, uncomplicated; Z79.899 Other long term (current) drug therapy
CPT/HCPCS: 19371; 57500; 36415; 80048; 87077; 87086; 87186; 88304; 88305; 93005; A9270; J0690; J1100; J1170; J1580; J2250; J2270; J2405; J2704; J7120